=== PATIENT | female | born 1980 | race Caucasian/White ===

== ENCOUNTER 2021-01-25 07:22 | Outpatient (REF) | payer OTHER, SELFPAY ==
[2021-01-25 11:21] LABS: MANUAL DIFF FLAG NO
[2021-01-25 11:32] LABS: Basophils Percent Auto 0.5 % (0-2); Eosinophils Percent Auto 0.3 % (0-4); Hematocrit 37.6 % (37-47); Hemoglobin 12.5 g/dl (12.0-16.0); Imm Gran Abs Auto 0.01 X10*3/uL (0.00-0.03); Imm Gran Pct Auto 0.2 % (0.0-0.4); Lymphocytes Absolute Auto 1.4 X10*3/uL (1.2-4.9); Lymphocytes Percent Auto 23.8 % (20-40); Mean Corpuscular HGB Conc 33.2 g/dl (31.0-35.0); Mean Corpuscular Hemoglobin 31.9 pg (27.0-33.0); Mean Corpuscular Volume 95.9 fL (80-98); Mean Platelet Volume 11.8 fL (9.4-12.3); Monocytes Absolute Auto 0.3 X10*3/uL (0.1-1.2); Monocytes Percent Auto 5.9 % (2-11); Neutrophils Percent Auto 69.3 % (45-73); Platelet Count 278 X10*3/uL (160-400); Red Blood Count 3.92 X10*6/uL (4.20-5.50); Red Cell Distribution Width 12.8 % (11.0-16.0); White Blood Count 5.8 X10*3/uL (4.8-10.8)
[2021-01-25 12:04] LABS: Alanine Aminotransferase 12 U/L (0-31); Albumin Level 4.2 g/dL (3.5-5.0); Alkaline Phosphatase 24 U/L (39-117); Anion Gap 10 (12-20); Aspartate Amino Transferase 18 U/L (5-31); Bilirubin Direct 0.3 mg/dL (0.0-0.5); Bilirubin Total 0.6 mg/dL (0.0-1.0); Blood Urea Nitrogen 9 mg/dL (9-16); Calcium 8.7 mg/dL (8.4-10.2); Carbon Dioxide 29 mmol/L (22-29); Chloride 105 mmol/L (96-108); Cholesterol 145 mg/dL; Estimated Glomerular Filt Rate > 60; Glucose Fasting 71 mg/dL (60-99); HDL Cholesterol 63 mg/dL; LDL Cholesterol Calculated 72 mg/dl; Sodium 140 mmol/L (135-145); Total Protein 6.6 g/dL (6.5-8.0); Triglycerides 51 mg/dL
[2021-01-25 12:25] LABS: TSH reflex Free T4 1.75 uIU/mL (0.32-4.0)
== END 2021-01-25 07:23 | disposition home or self-care (01) ==
LOC: HO.HMGCLDS 07:22
PROVIDERS: PCP Internal Medicine; Visit Provider Internal Medicine
DX: Z00.01 Encounter for general adult medical examination with abnormal findings (principal); M19.90 Unspecified osteoarthritis, unspecified site; N80.9 Endometriosis, unspecified
CPT/HCPCS: 36415; 80048; 80061; 80076; 84443; 85025

== ENCOUNTER 2021-03-13 08:08 | Outpatient (REF) | payer OTHER, SELFPAY ==
[2021-03-15 17:46] LABS: HPV mRNA E6/E7 rflx Not Detected (Not Detected)
== END 2021-03-13 08:09 | disposition home or self-care (01) ==
LOC: HO.LAB 08:08
PROVIDERS: PCP Internal Medicine; Visit Provider Obstetrics & Gynecology
DX: Z01.419 Encounter for gynecological examination (general) (routine) without abnormal findings (principal); Z11.51 Encounter for screening for human papillomavirus (HPV)
CPT/HCPCS: 87624; 88142

== ENCOUNTER 2021-07-22 11:46 | Emergency (ER) | payer OTHER, SELFPAY ==
--- NOTE | ~2021-07-22 | CT_ITS ---
EXAMINATION: CT HEAD WITHOUT CONTRAST CLINICAL INFORMATION: Headache COMPARISON: None TECHNIQUE: Contiguous axial imaging was performed from the skull base to vertex without intravenous administration of contrast. This CT examination was performed using dose optimization techniques as appropriate, variously including the following: *Automated exposure control *Adjustment of mA and/or kV according to patient size (this includes techniques or standardized protocols for targeted exams where dose is matched to indication/reason for exam; i.e. extremities or head) *Use of iterative reconstruction technique DLP: 632 mGy-cm FINDINGS: There is no evidence of acute intracranial hemorrhage or territorial infarction. No abnormal mass effect or midline shift is seen. Larose to white matter differentiation is well preserved. No extra-axial fluid collections are identified. The ventricles are normal in size. There is no abnormal attenuation within the brain parenchyma. No acute osseous abnormality The mastoid air cells and visualized portions of the paranasal sinuses are well aerated. CT/CT head/brain wo con IMPRESSION: No CT evidence of acute intracranial pathology.
[2021-07-22 11:58] VITALS: BP 118/82; BP 123/75; PULSE 60; PULSE 72; RESP 16; TEMP 35.8; O2SAT 100; O2SAT 98; BMI 20.9
--- NOTE | 2021-07-22 12:17 | ED.HA ---
HPI - Headache General Chief Complaint: Headache Stated Complaint: headache 09/01 from urgent care Time Seen by Provider: 07/22/21 15:44 Source: patient Mode of arrival: ambulatory Limitations: no limitations History of Present Illness HPI Narrative: 40-year-old female presents emergency room complaining of headache. Patient states that she has a history of headaches or migraines does have history of endometriosis and chronic abdominal pain has had multiple ex laps she denies any falls or injury she denies fevers chills cough or shortness of breath. Patient states she went to the walk-in clinic and sent here. Patient states initially she is taking Tylenol with relief of the symptoms as well 5 days ago has not taken anything for the pain for several days. Patient is unable to describe where the pain is she denies any neck stiffness headache is not worse with shaking her head. Patient has no fever chills. Nothing makes it better other than the Tylenol which she stopped taking and nothing makes it worse. elicited complaint: headache Related Data Home Medications Medication Instructions Recorded Confirmed No Known Home Meds 01/22/21 01/22/21 Allergies Allergy/AdvReac Type Severity Reaction Status Date / Time No Known Allergies Allergy Verified 03/13/21 08:16 Review of Systems Review of Systems: Review of systems: General: Patient denies any fever chills recent illness or falls Musculoskeletal: Denies back pain or body aches or other injuries HEENT: denies headache, runny nose, ear pain Respiratory: denies shortness of breath, cough Cardiovascular: no chest pain or palpitations : denies dysuria, frequency Abdomen: no nausea vomiting denies abdominal pain Extremities: no swelling, no pain Skin: no diaphoresis Yes all other systems are reviewed and are negative [facility] Past Medical History Medical History (Updated 07/22/21 @ 15:46 by Heri Alexander DO) H/O LEEP (loop electrosurgical excision procedure) of cervix complicating IBS (irritable bowel syndrome) Surgical History H/O knee surgery H/O laparoscopy Hx of breast reduction, elective Social History Social History Alcohol intake: never Advance Directives: No Advance Directives Information Provided: No Physical Exam Vital Signs: Vital Signs: Last Vital Signs Temp 96.4 F L 07/22/21 11:58 Pulse 72 07/22/21 11:58 Resp 16 07/22/21 11:58 BP 118/82 07/22/21 11:58 Pulse Ox 98 07/22/21 11:58 Body Mass Index 20.9 Neurological exam: CN II- XII tested. Patient is alert and oriented to person place and time. Patient has no dysphagia or dysarthia, denies good vision in all four vision villalpando no nystagmus on exam, good strength to upper and lower extremities with normal reflexes to brachioradialis, wrist, patella and achilles. Negative romberg, good finger to nose and heel to murcia. General: Well-appearing well-nourished in no signs of distress HEENT: Normocephalic atraumatic Neck: No signs of JVD, no masses no tenderness or lymphadenopathy Cardiovascular: Regular rate and rhythm Respiratory: Clear to auscultation bilaterally Abdomen: Soft nontender no masses Extremities: Normal pedal pulses no signs of edema Skin: Dry warm no rashes Back: No tenderness full ROM MDM - Headache MDM Narrative Medical decision making narrative: Patient has new onset headache does not sound like a thunderclap the worst headache of her life she has no fever chills does not sound like meningitis does not sound like she is having brain bleed buttock patient for CT scan to make sure there is no structural abnormalities the patient has never had history of migraines. I treat the patient with Reglan Benadryl Toradol Tylenol. 1400 patient with complete resolution of headache patient has a pending CT scan head. 1544 CT is negative will have the patient go home with PCP and neurology follow-up. Lab Data Labs: Lab Results 07/22/21 Range/Units 13:28 Urine Test NEGATIVE (NEGATIVE) Discharge Plan Discharge Clinical Impression: Headache Patient Disposition: Home, Self-Care Instructions: General Headache (ED) Additional Instructions: Please call to follow up for your headache. If you have any other concerns please return to the ED. Referrals: Johanne Chavez MD [Physician] - 2 days (Please call to follow up for your headache.)
[2021-07-22] MEDS: Acetaminophen 325 MG TABLET 650 MG PO (12:24)
[2021-07-22] MEDS: Metoclopramide HCl 10 MG/2 ML VIAL IVPUSH (12:24)
[2021-07-22] MEDS: diphenhydrAMINE HCL 50 MG/ML VIAL 25 MG IVPUSH (12:24)
[2021-07-22] MEDS: 0.9 % Sodium Chloride 500 ML 999 ML IV (12:25)
[2021-07-22] MEDS: Ketorolac Tromethamine 15 MG/ML VIAL IV (12:34)
[2021-07-22 13:43] LABS: UPreg QC Valid YES; Urine Pregnancy NEGATIVE (NEGATIVE)
== END 2021-07-22 15:54 | disposition home or self-care (01) ==
PROVIDERS: Emergency Provider Student in an Organized Health Care Education/Training Program
DX: R51.9 Headache, unspecified (principal)
CPT/HCPCS: 70450; 81025; 96374; 96375; 99284; J1200; J1885; J2765

== ENCOUNTER 2023-05-19 13:01 | Outpatient (REF) | payer OTHER, SELFPAY ==
[2023-05-19 14:15] LABS: MANUAL DIFF FLAG NO
[2023-05-19 14:22] LABS: Basophils Percent Auto 0.6 % (0-2); Eosinophils Percent Auto 0.4 % (0-4); Hematocrit 37.3 % (37.0-47.0); Hemoglobin 12.8 g/dl (12.0-16.0); Imm Gran Abs Auto 0.02 X10*3/uL (0.00-0.03); Imm Gran Pct Auto 0.3 % (0.0-0.4); Lymphocytes Absolute Auto 1.6 X10*3/uL (1.2-4.9); Lymphocytes Percent Auto 22.4 % (20-40); Mean Corpuscular HGB Conc 34.3 g/dl (31.0-35.0); Mean Corpuscular Volume 93.3 fL (80.0-98.0); Mean Platelet Volume 10.6 fL (9.4-12.3); Monocytes Absolute Auto 0.4 X10*3/uL (0.1-1.2); Monocytes Percent Auto 5.7 % (2-11); Neutrophils Percent Auto 70.6 % (45-73); Platelet Count 259 X10*3/uL (160-400); Red Cell Distribution Width 12.7 % (11.0-16.0); White Blood Count 7.1 X10*3/uL (4.8-10.8)
[2023-05-19 15:22] LABS: Estimated Average Glucose 88 mg/dL; Hemoglobin A1c % 4.7 %
[2023-05-19 15:29] LABS: Alanine Aminotransferase 22 U/L (0-31); Albumin Level 4.2 g/dL (3.5-5.0); Alkaline Phosphatase 23 U/L (39-117); Anion Gap 12 (12-20); Aspartate Amino Transferase 19 U/L (5-31); Bilirubin Total 0.6 mg/dL (0.0-1.0); Blood Urea Nitrogen 9 mg/dL (9-16); Calcium 9.4 mg/dL (8.4-10.2); Carbon Dioxide 25 mmol/L (22-29); Chloride 107 mmol/L (96-108); Estimated Glomerular Filt Rate > 60; Glucose Random 67 mg/dL (60-115); Potassium 4.1 mmol/L (3.3-5.1); Sodium 140 mmol/L (135-145); Total Protein 6.8 g/dL (6.5-8.0)
== END 2023-05-19 13:02 | disposition home or self-care (01) ==
LOC: HO.HMGCLDS 13:01
PROVIDERS: PCP Internal Medicine; Visit Provider Internal Medicine
DX: N76.0 Acute vaginitis (principal)
CPT/HCPCS: 36415; 80053; 83036; 85025

== ENCOUNTER 2023-06-23 11:59 | Outpatient (AMB) | payer OTHER, SELFPAY ==
--- NOTE | 2023-06-23 12:02 | A.OFFPC_ITS ---
Vital Signs 06/23/23 12:03 Height 5 ft 4 in Weight 158 lb BMI 27.1 BP 110/72 Blood Pressure Location Rt brachial Position Sitting Pulse 68 Pulse Source Pulse Oximeter Pulse Oximetry (%) 99 Oxygen Delivery Method Room Air Intake Visit Reasons: Annual PE Allergies No Known Allergies Allergy (Verified 06/23/23 12:04) Medication List - Last Reconciled 06/23/23 by Emmett Chaevz MD No Known Home Meds Tobacco use date assessed: 06/23/23 Dental Screening Dental Screen Date: 06/23/23 Did you have a dental visit in the last 12 months?: Yes Did you have a dental problem in the last 6 months where you did not have access to dental care?: No Was dental information given to patient?: Patient has dentist HPI Annual PE HPI Details Physical exam appointment OBGYN at [facility] Mammogram through them Labs done recently reviewed Patient has no complaints PFSH Medical History H/O LEEP (loop electrosurgical excision procedure) of cervix complicating IBS (irritable bowel syndrome) Surgical History H/O knee surgery H/O laparoscopy Hx of breast reduction, elective Social History Housing: House Alcohol intake: never Patient Tobacco Use Status: Never used Tobacco e-Cigarette/Vaping Use: Never Used service: No Current occupational status: unemployed Cognitive needs: No Hearing needs: No Vision needs: Yes Female Reproductive History Menstrual Age of Menarche: 10 Review of Systems Const Denies chills, Denies fever(s) and Denies headache(s) Eyes Denies blurry vision ENT Denies headache(s), Denies nasal discharge, Denies nasal obstruction, Denies odynophagia and Denies sinus pain Card Denies chest pain at rest and Denies chest pain with activity Resp Denies cough and Denies hemoptysis GI Denies diarrhea, Denies odynophagia, Denies vomiting and Denies hematemesis Reports as per HPI Musc Denies abnormal gait Skin/Breast Reports as per HPI Neuro Denies Neuro-related abnormal movements, Denies Abnormal speech present, Denies abnormal gait, Denies headache(s) and Denies Sensory deficit (Neuro) Psych Denies mood swings and Denies paranoia Endo Reports as per HPI Irvin/Lymph Reports as per HPI Aller/Immun Reports as per HPI Physical exam (Primary Care) Vital Signs: Last Vital Signs Pulse 68 06/23/23 12:03 BP 110/72 06/23/23 12:03 Pulse Ox 99 06/23/23 12:03 Oxygen Delivery Method Room Air 06/23/23 12:03 BMI result Body Mass Index 27.1 Tobacco/Smoking Status: Tobacco use Status Tobacco use date assessed 06/23/23 06/23/23 12:07 Patient Tobacco Use Status Never used Tobacco 06/23/23 12:02 e-Cigarette/Vaping Use Never Used 06/23/23 12:02 Const General: cooperative, comfortable and no acute distress Orientation/consciousness: patient oriented x3 HENMT Head: Yes normocephalic and Yes atraumatic Eyes General: appearance normal, both eyes and all related structures Pupils: Equal, round and reactive pupils present EOM: EOMs intact bilaterally Neck Neck: Yes supple and No lymphadenopathy Thyroid: Thyroid normal Lymphatic: no lymphadenopathy noted Resp Effort & Inspection: normal respiratory effort and able to speak in complete sentences Auscultation: clear to auscultation bilaterally Cardio Heart sounds: S1 normal heart sound present and S2 normal heart sound present GI Palpation (GI): Soft to palpation and nontender Auscultation: normal bowel sounds General: Yes no CVA tenderness Back/Spine/Pelvis Back: no CVA tenderness Skin General skin exam: elasticity normal and turgor normal Neuro General: patient oriented x3 and gait normal Cranial nerves: Yes Equal, round and reactive pupils present Speech: No Abnormal speech present Sensory Exam: No Sensory deficit (Neuro) Coordination: tandem gait normal and Romberg test negative Extrem General: Yes normal exam except as noted and No edema Assessment and Plan Assessment & Plan (1) Annual physical exam: Code(s): Z00.00 - Encounter for general adult medical examination without abnormal findings Plan Physical exam appointment OBGYN at [facility] Mammogram through them Labs done recently reviewed Patient has no complaints Coding Level of Care Code Est Pt Prev Care 40-64y(56729) Diagnoses Annual physical exam Z00.00
[2023-06-23 12:03] VITALS: BP 110/72; PULSE 68; O2SAT 99; BMI 27.1
== END 2023-06-23 12:16 | disposition home or self-care (01) ==
PROVIDERS: PCP Internal Medicine; Visit Provider Internal Medicine
DX: Z00.00 Encounter for general adult medical examination without abnormal findings (principal)
CPT/HCPCS: 99396

== ENCOUNTER 2024-04-13 09:33 | Outpatient (AMB) | payer OTHER, SELFPAY ==
[2024-04-13 09:42] VITALS: BP 118/70; PULSE 67; O2SAT 100
--- NOTE | 2024-04-13 09:42 | AM.OFFWIN_ITS ---
Intake Vital Signs 04/13/24 09:42 Height 5 ft 4 in BP 118/70 Blood Pressure Location Rt brachial Position Sitting Pulse 67 Pulse Source Pulse Oximeter Pulse Oximetry (%) 100 Oxygen Delivery Method Room Air Intake Visit Reasons: EP pink eye? Intake Note: pt is here for pink eye since this morning Patient Tobacco Use Status: Never used Tobacco Allergies No Known Allergies Allergy (Verified 04/13/24 09:44) Do you need a note to return to daycare/school/sports/work: No HPI HPI Comments History of Present Illness Details 43 y/o female who presents to walk in [facility] with c/o dry and itchy eyes since this morning. Denies pain, light sensitivity but reports small discharge. [facility] Medical History H/O LEEP (loop electrosurgical excision procedure) of cervix complicating IBS (irritable bowel syndrome) Surgical History H/O knee surgery H/O laparoscopy Hx of breast reduction, elective Social History Housing: House Alcohol intake: never Patient Tobacco Use Status: Never used Tobacco e-Cigarette/Vaping Use: Never Used service: No Current occupational status: unemployed Cognitive needs: No Hearing needs: No Vision needs: Yes Female Reproductive History Menstrual Age of Menarche: 10 Review of Systems Const All systems reviewed & are unremarkable except as noted in HPI and below Physical Exam Vital Signs: Last Vital Signs Pulse 67 04/13/24 09:42 BP 118/70 04/13/24 09:42 Pulse Ox 100 04/13/24 09:42 Oxygen Delivery Method Room Air 04/13/24 09:42 Const General: comfortable and no acute distress Orientation/consciousness: patient oriented x3 Eyes Conjunctivae: conjunctivae normal Sclerae: sclerae normal Pupils: Equal, round and reactive pupils present EOM: EOMs intact bilaterally Neuro General: patient oriented x3, gait normal and moves all extremities Cranial nerves: Yes Equal, round and reactive pupils present Psych Speech and movement: Normal speech and movement present Assessment & Plan Assessment & Plan (1) Dry eyes, bilateral: Code(s): H04.123 - Dry eye syndrome of bilateral lacrimal glands Plan: - Apply eye drops as directed. - Maintain a good eye hygiene. - RTC if not better. Medications: New olopatadine 0.1% (Pataday Twice Daily Relief) separate doses by at least 6-8 hours 1 drp ophthalmic (eye) BID 5 mL 0RF dry eyes H04.123 - Dry eye syndrome of bilateral lacrimal glands Coding Level of Care Code Est Pt Level 3 (62210) Diagnoses Dry eyes, bilateral H04.123 Time Spent (min) 15
== END 2024-04-13 10:24 | disposition home or self-care (01) ==
PROVIDERS: PCP Internal Medicine; Visit Provider Nurse Practitioner Family
DX: H04.123 Dry eye syndrome of bilateral lacrimal glands (principal)
CPT/HCPCS: 99213